=== PATIENT | male | born 1985 | race Caucasian/White ===

== ENCOUNTER 2019-09-09 13:18 | Emergency (ER) | payer SELFPAY ==
--- NOTE | 2019-09-09 13:39 | ER Document Report ---
ED Medical Screen (RME) - General Chief Complaint: Chest Pain Stated Complaint: CHEST PAIN, LEFT ARM TINGLE Time Seen by Provider: 09/09/19 13:34 - HPI Notes: 09/09/19 13:38 Patient is a 34-year-old male with a past history of drug abuse, clean for 1 year, who presents complaining of chest pain for the past couple days. Patient states that he has experienced chest pain like this in the past, but never figured out what it was. Denies drug allergies. Pain does not radiate. Denies any prolonged immobilization, distance travel, recent surgery/trauma, personal cancer history, hormone use, or previous DVT/PE. Denies PAK, fever, neck pain, URI, n/v/d, Abd pain, dysuria, back pain, or rash. I have treated and performed a rapid initial assessment of this patient. A comprehensive ED assessment and evaluation of the patient, analysis of test results and completion of medical decision making process will be conducted by additional ED providers. PHYSICAL EXAMINATION: GENERAL: Well-appearing, well-nourished and in no acute distress. A&Ox4. Answers questions appropriately. LUNGS: Breath sounds clear to auscultation bilaterally and equal. No wheezes rales or rhonchi. HEART: Regular rate and rhythm without murmurs, rubs, gallops. Extremities: No cyanosis, clubbing, or edema b/l. Natalie negative bilaterally. No lower extremity asymmetry. NEUROLOGICAL: Normal speech, normal gait. PSYCH: Normal mood, normal affect. - Related Data Allergies/Adverse Reactions: No Known Allergies Allergy (Unverified 09/09/19 13:34) Physical Exam - Vital signs Vitals: Temp Pulse Resp BP Pulse Ox 97.5 F 58 L 18 153/82 H 99 09/09/19 13:30 09/09/19 13:30 09/09/19 13:30 09/09/19 13:30 09/09/19 13:30 Course - Vital Signs Vital signs: Temp Pulse Resp BP Pulse Ox 97.5 F 58 L 18 153/82 H 99 09/09/19 13:30 09/09/19 13:30 09/09/19 13:30 09/09/19 13:30 09/09/19 13:30
--- NOTE | 2019-09-09 14:06 | RADIOLOGY REPORT (SQ) ---
EXAM DESCRIPTION: CHEST 2 VIEWS COMPLETED DATE/TIME: 09/09/2019 1:51 pm REASON FOR STUDY: CP COMPARISON: None. EXAM PARAMETERS: NUMBER OF VIEWS: Two views. TECHNIQUE: PA and lateral views of the chest were obtained.. RADIATION DOSE: NA LIMITATIONS: none FINDINGS: LUNGS AND PLEURA: No consolidation, pleural effusion or pneumothorax. MEDIASTINUM AND HILAR STRUCTURES: No mediastinal or hilar contour abnormality. HEART AND VASCULAR STRUCTURES: The cardiac silhouette and pulmonary vasculature are within normal [place] its. BONES: No acute findings. HARDWARE: None in the chest. OTHER: No other finding. IMPRESSION: No acute cardiopulmonary process. TECHNICAL DOCUMENTATION: JOB ID: [id number] 2010 [employer]- All Rights Reserved Reading location - IP/workstation name: [email or web address]
[2019-09-09 15:44] LABS: ABSOLUTE EOSINOPHILS # (AUTO) 0.1 10^3/uL (0.0-0.6); ABSOLUTE LYMPHOCYTES (AUTO) 1.1 10^3/uL (0.5-4.7); ABSOLUTE MONOCYTES (AUTO) 0.5 10^3/uL (0.1-1.4); ABSOLUTE NEUT (AUTO) 7.1 10^3/uL (1.7-8.2); BASOPHILS % (AUTO) 0.1 % (0-2); EOSINOPHILS % (AUTO) 0.8 % (0-6); HEMATOCRIT 50.9 % (37.9-51.0); HEMOGLOBIN 17.6 g/dL (13.5-17.0); LYMPHOCYTES % (AUTO) 12.7 % (13-45); MEAN CORPUSCULAR HEMOGLOBIN 31.9 pg (27.0-33.4); MEAN CORPUSCULAR HGB CONC 34.6 g/dL (32.0-36.0); MEAN CORPUSCULAR VOLUME 92 fl (80-97); MONOCYTES % (AUTO) 6.1 % (3-13); PLATELET COUNT 241 10^3/uL (150-450); RED BLOOD COUNT 5.52 10^6/uL (4.35-5.55); RED CELL DISTRIBUTION WIDTH 13.1 % (11.5-14.0); SEGMENTED NEUTROPHILS % (AUTO) 80.3 % (42-78); TOTAL CELLS COUNTED % (AUTO) 100 %; WHITE BLOOD COUNT 8.8 10^3/uL (4.0-10.5)
[2019-09-09 16:12] LABS: ALBUMIN 5.1 g/dL (3.5-5.0); ALKALINE PHOSPHATASE 78 U/L (38-126); ANION GAP 12 (5-19); ASPARTATE AMINO TRANSFERASE 23 U/L (17-59); BILIRUBIN,TOTAL 0.5 mg/dL (0.2-1.3); BLOOD UREA NITROGEN 11 mg/dL (7-20); CALCIUM 9.8 mg/dL (8.4-10.2); CARBON DIOXIDE 22 mmol/L (22-30); CHLORIDE 105 mmol/L (98-107); GLUCOSE 92 mg/dL (75-110); POTASSIUM 5.3 mmol/L (3.6-5.0); TOTAL PROTEIN 8.7 g/dL (6.3-8.2)
[2019-09-09] MEDS ORDERED: NORMAL SALINE 1000 ML 1,000 ML IV ONE (17:21)
--- NOTE | 2019-09-09 17:45 | ER Document Report ---
ED General - General Chief Complaint: Chest Pain Stated Complaint: CHEST PAIN, LEFT ARM TINGLE Time Seen by Provider: 09/09/19 13:34 TRAVEL OUTSIDE OF THE [place] IN LAST 30 DAYS: No - HPI Notes: Patient is a 34-year-old male who presents the emergency department for evaluation of chest pain. Is left-sided. It sharp. He states he has had it approximately 4 times daily for the last 3 or 4 days. He states he had similar episodes about a month ago but did not get it evaluated. He states today his left arm felt funny with it, so he presents to the ED for further evaluation. He denies any associated palpitations, shortness of breath, diaphoresis, near syncope. He has a history of IV drug abuse. He has not used IV drugs in over a year. It is this that makes him extremely nervous that something more significant might be going on. - Related Data Allergies/Adverse Reactions: No Known Allergies Allergy (Unverified 09/09/19 13:34) Home Medications: None Past Medical History - General Information source: Patient - Social History Smoking Status: Current Every Day Smoker Drug Abuse: Other - Former IV drug abuser Family History: CAD - Premature in grandfather Patient has suicidal ideation: No Patient has homicidal ideation: No Review of Systems - Review of Systems Cardiovascular: See HPI -: Yes All other systems reviewed and negative Physical Exam - Vital signs Vitals: Temp Pulse Resp BP Pulse Ox 97.5 F 58 L 18 153/82 H 99 09/09/19 13:30 09/09/19 13:30 09/09/19 13:30 09/09/19 13:30 09/09/19 13:30 - Notes Notes: This is a very pleasant 34-year-old male who appears his stated age in no acute distress. Vital signs reviewed, please refer to chart. Head is normocephalic, atraumatic. Pupils equal round, reactive to light. Neck is supple without meningismus. Heart is regular rate and rhythm. Lungs are clear to auscultation bilaterally. Abdomen is soft, nontender, normoactive bowel sounds throughout. Extremities without cyanosis, clubbing. Posterior calves are nontender. Periphe ral pulses are equal. Skin is warm and dry. Patient is awake, alert, neurological exam is nonfocal. Course - Re-evaluation Re-evalutation: 09/09/19 17:45 Patient presents to the emergency department for evaluation. He had laboratory investigations as ordered through triage. He has no pulmonary embolus risk factors. He does not have any signs of recent IV drug abuse. He has no heart murmur on exam. I do not have a strong suspicion for any drug abuse related etiology to his chest pain. The patient admits that he has had some significant anxiety as of late, he has it every day. I suspect this may be etiology. I did strongly encourage him to follow-up with primary care. [facility]. He does have risk factors within his smoking and his family history of coronary artery disease. I encouraged him to strongly modify his risk factors and follow-up with primary care. He was amenable to this. At this point still awaiting second troponin. Otherwise the labs revealed mild dehydration. He is given IV fluids. We will continue to monitor. 09/09/19 21:38 There was an error with the second troponin, and it was discarded. It took multiple attempts to obtain this blood. The patient is low risk. His pain is atypical. I do not think that it will add much to the work-up to have a second troponin at this point. I discussed this with the patient as well as his mother. His heart rate is in the 60s. He has a normal blood pressure at 117/75. He has minimal risk factors, that we already did discuss. The importance of following up with primary care was stressed. He is to quit smoking. At this point will again discharge the patient home. He is to return to the ED with worsening. - Vital Signs Vital signs: Temp Pulse Resp BP Pulse Ox 97.8 F 52 L 12 121/74 100 09/09/19 22:19 09/09/19 22:19 09/09/19 22:19 09/09/19 22:19 09/09/19 22:19 - Laboratory Result Diagrams: 09/09/19 15:15 09/09/19 15:15 Laboratory results interpreted by me: 09/09/19 09/09/19 15:15 15:15 Hgb 17.6 H Lymph % (Auto) 12.7 L Seg Neutrophils % 80.3 H Potassium 5.3 H Total Protein 8.7 H Albumin 5.1 H - Diagnostic Test Radiology reviewed: Reports reviewed Radiology results interpreted by me: 09/09/19 17:46 Chest X-Ray 09/09/19 13:36 IMPRESSION: No acute cardiopulmonary process. - EKG Interpretation by Me Additional EKG results interpreted by me: 09/09/19 17:46 Sinus mechanism with rate of 71 bpm. Left axis deviation. IVCD. Borderline prolonged QT interval. Nonspecific ST changes, but no acute changes concerning for ischemia or infarction. No old studies available for comparison. Discharge - Discharge Clinical Impression: Chest pain Qualifiers: Chest pain type: unspecified Qualified Code(s): R07.9 - Chest pain, unspecified Condition: Stable Disposition: HOME, SELF-CARE Instructions: Chest Pain of Unclear Cause ([facility]) Additional Instructions: No clear or identifiable cause was found for your chest pain today. Please follow-up with primary care for further evaluation. You should be sure to aggressively modify risk factors, including smoking, inactivity, etc. If you develop worsening or new concerning symptoms of any sort, please return immed iately to the emergency department for evaluation.
--- NOTE | 2019-09-09 19:43 | EKG REPORT ---
SEVERITY:- BORDERLINE ECG - SINUS RHYTHM BORDERLINE LEFT AXIS DEVIATION BORDERLINE PROLONGED QT INTERVAL : Confirmed by: Winnie Middleton MD 09-Sep-2019 19:42:03
[2019-09-09 22:07] VITALS: BP 121/74
== END 2019-09-09 22:18 | disposition home or self-care (01) ==
LOC: ER 13:18
DX: R07.89 Other chest pain (principal); F41.9 Anxiety disorder, unspecified; E86.0 Dehydration; R20.2 Paresthesia of skin; I45.9 Conduction disorder, unspecified; Z82.49 Family history of ischemic heart disease and other diseases of the circulatory system
CPT/HCPCS: 93005; 99285; 96360; 96361; 36415; 85025; 80053; 84484; 71046; 93010; J7030